=== PATIENT | female | born 1990 | race Caucasian/White ===

== ENCOUNTER 2018-03-29 15:12 | Outpatient (CLI) | payer MEDICAID | END 2018-03-29 22:47 | disposition home or self-care (01) | LOC: OBT 15:12 → L-D 15:14 → OBT 22:47 | DX: O36.5930 Maternal care for other known or suspected poor fetal growth, third trimester, not applicable or unspecified (principal); O24.419 Gestational diabetes mellitus in pregnancy, unspecified control; Z3A.37 37 weeks gestation of pregnancy | CPT/HCPCS: 76815; 76818; 82962 ==

== ENCOUNTER 2018-04-12 05:57 | Inpatient (IN) | payer MEDICAID ==
[2018-04-12] MEDS: LACTATED RINGER'S 1,000 ML IV ×2 (06:17→09:05)
[2018-04-12] MEDS ORDERED: CEFAZOLIN 2 GM/50 ML (PMX) 50 ML IV (06:30)
[2018-04-12] MEDS ORDERED: CARBOPROST 250 MCG INJ IM ×2 (06:30→09:30)
[2018-04-12] MEDS ORDERED: METHYLERGONOVINE 0.2 MG INJ IM ×2 (06:30→09:30)
[2018-04-12] MEDS ORDERED: MISOPROSTOL 200 MCG TAB PR ×2 (06:30→09:30)
[2018-04-12] MEDS ORDERED: OXYTOCIN 30 UNITS/LR 500 ML IV ×3 (06:30→09:30)
[2018-04-12 06:55] LABS: ADD MAN DIFF? NO
[2018-04-12] MEDS ORDERED: EPHEDrine SULFATE 50 MG/5 ML SYG (07:00)
[2018-04-12] MEDS ORDERED: OXYTOCIN 30 UNITS/LR 500 ML BAG IV (07:00)
[2018-04-12 07:13] LABS: BASOPHIL # 0.1 10^3/ul (0.0-0.1); BASOPHILS % 0.5 % (0.0-2.0); EOSINOPHILS # 0.1 10^3/ul (0.0-0.5); HEMATOCRIT 34.2 % (37.0-47.0); HEMOGLOBIN 11.8 g/dl (12.0-16.0); LYMPHOCYTES # 2.4 10^3/ul (0.8-2.9); LYMPHOCYTES % 22.9 % (15.0-51.0); MEAN CORPUSCULAR HEMOGLOBIN 31.2 pg (29.0-33.0); MEAN CORPUSCULAR HGB CONC 34.5 g/dl (32.0-37.0); MEAN CORPUSCULAR VOLUME 90.5 fl (82.0-101.0); MEAN PLATELET VOLUME 12.3 fl (7.4-10.4); MONOCYTE # 0.7 10^3/ul (0.3-0.9); MONOCYTES % 6.4 % (0.0-11.0); NEUTROPHIL # 7.2 10^3/ul (1.6-7.5); NEUTROPHILS % 68.4 % (39.0-77.0); PLATELET COUNT 169 10^3/UL (140-415); RED BLOOD COUNT 3.78 10^6/ul (4.20-5.40); RED CELL DISTRIBUTION WIDTH 12.9 % (11.5-14.5)
[2018-04-12 07:13] LABS: WHITE BLOOD COUNT 10.5 10^3/ul (4.8-10.8)
[2018-04-12 07:29] LABS: INR 0.95; PROTIME 12.8 Sec (11.9-14.9)
[2018-04-12 07:30] LABS: PARTIAL THROMBOPLASTIN TIME 29.1 Sec (25.0-35.0)
[2018-04-12 07:37] LABS: GLUCOSE 81 mg/dl (70-220)
[2018-04-12] MEDS ORDERED: morphine SULFATE/PF (10 MG/10 ML) INJ (07:38)
[2018-04-12] MEDS ORDERED: BUPIVACAINE 0.75%/DEXT (SPINAL) 2 ML INJ (07:38)
[2018-04-12] MEDS ORDERED: PHENYLephrine (100 MCG/ML) 5ML SYG (07:51)
[2018-04-12] MEDS ORDERED: ONDANSETRON 4 MG INJ (08:23)
[2018-04-12] MEDS ORDERED: FENTAnyl 50 MCG/ML VIAL (08:25)
[2018-04-12] MEDS ORDERED: DIPHENHYDRAMINE 50 MG INJ IV ×2 (08:30)
[2018-04-12] MEDS ORDERED: FENTAnyl 50 MCG/ML VIAL IV ×2 (08:30)
[2018-04-12] MEDS ORDERED: ONDANSETRON 4 MG INJ IV (08:30)
[2018-04-12] MEDS ORDERED: KETOROLAC 30 MG INJ IV (08:30)
[2018-04-12] MEDS ORDERED: METOCLOPRAMIDE 10 MG INJ IV (08:30)
[2018-04-12] MEDS ORDERED: NALOXONE (0.4 MG/ML) INJ IV (08:30)
[2018-04-12] MEDS ORDERED: HYDROmorphONE 1 MG/5 ML IV SYRINGE IV ×2 (08:30)
[2018-04-12] MEDS ORDERED: HYDROmorphONE 0.5 MG/0.5 ML SYG IV ×2 (08:30)
[2018-04-12] MEDS ORDERED: METHYLERGONOVINE 0.2 MG TAB PO (09:30)
[2018-04-12] MEDS: DEXTROSE 5%-LR 1,000 ML IV ×2 (11:58→17:04)
[2018-04-12] MEDS: OXYTOCIN 30 UNITS/LR 500 ML IV ×2 (11:59→17:39)
[2018-04-12] MEDS: KETOROLAC 30 MG INJ IV ×2 (12:18→18:45)
[2018-04-12 14:58] LABS: RAPID PLASMA REAGIN NONREACTIVE (NR)
[2018-04-12] MEDS: SENNA/DOCUSATE NA (8.6MG/50MG) TAB PO (20:49)
[2018-04-12] MEDS: LANOLIN 7 GM TUBE TOP (20:49)
[2018-04-13] MEDS: DEXTROSE 5%-LR 1,000 ML IV ×3 (01:04→17:04)
[2018-04-13] MEDS: KETOROLAC 30 MG INJ IV ×2 (01:11→07:58)
[2018-04-13 06:40] LABS: ADD MAN DIFF? NO
[2018-04-13 06:48] LABS: BASOPHILS % 0.2 % (0.0-2.0); EOSINOPHILS # 0.1 10^3/ul (0.0-0.5); HEMATOCRIT 32.4 % (37.0-47.0); HEMOGLOBIN 11.1 g/dl (12.0-16.0); LYMPHOCYTES # 1.6 10^3/ul (0.8-2.9); LYMPHOCYTES % 12.7 % (15.0-51.0); MEAN CORPUSCULAR HEMOGLOBIN 30.7 pg (29.0-33.0); MEAN CORPUSCULAR HGB CONC 34.3 g/dl (32.0-37.0); MEAN CORPUSCULAR VOLUME 89.5 fl (82.0-101.0); MEAN PLATELET VOLUME 12.1 fl (7.4-10.4); MONOCYTE # 0.7 10^3/ul (0.3-0.9); NEUTROPHIL # 9.9 10^3/ul (1.6-7.5); NEUTROPHILS % 79.7 % (39.0-77.0); PLATELET COUNT 152 10^3/UL (140-415); RED BLOOD COUNT 3.62 10^6/ul (4.20-5.40); RED CELL DISTRIBUTION WIDTH 12.9 % (11.5-14.5)
[2018-04-13 06:48] LABS: WHITE BLOOD COUNT 12.4 10^3/ul (4.8-10.8)
[2018-04-13] MEDS: HYDROCODONE/APAP (5/325) TAB PO ×5 (08:00→21:25)
[2018-04-13] MEDS: SENNA/DOCUSATE NA (8.6MG/50MG) TAB PO ×2 (09:15→21:24)
[2018-04-13] MEDS: IBUPROFEN 800 MG TAB PO ×2 (14:00→21:24)
[2018-04-14] MEDS: IBUPROFEN 800 MG TAB PO ×3 (05:38→21:21)
[2018-04-14] MEDS: HYDROCODONE/APAP (5/325) TAB PO ×4 (05:39→21:21)
[2018-04-14] MEDS: SENNA/DOCUSATE NA (8.6MG/50MG) TAB PO ×2 (09:29→21:21)
[2018-04-15] MEDS: HYDROCODONE/APAP (5/325) TAB PO ×3 (04:13→14:09)
[2018-04-15] MEDS: IBUPROFEN 800 MG TAB PO ×2 (06:08→14:10)
[2018-04-15] MEDS: SENNA/DOCUSATE NA (8.6MG/50MG) TAB PO (08:59)
[2018-04-15] MEDS ORDERED: MEASLES,MUMPS,RUBELLA VACCINE INJ SC* (09:00)
[2018-04-15] MEDS ORDERED: DIPHTH/TET/ACEL PERTUSS (ADULT) 0.5 ML VIAL IM* (09:00)
== END 2018-04-15 17:15 | disposition home or self-care (01) | DRG 766 ==
LOC: L-D 05:57 → PP1 11:10
PROVIDERS: Obstetrics & Gynecology
PROC: 10D00Z1 Extraction of Products of Conception, Low, Open Approach (ICD-10-PCS; principal; 2018-04-12 07:30)
PROC: 0DNU0ZZ Release Omentum, Open Approach (ICD-10-PCS; 2018-04-12 07:30)
PROC: 0UN60ZZ Release Left Fallopian Tube, Open Approach (ICD-10-PCS; 2018-04-12 07:30)
DX: O34.219 Maternal care for unspecified type scar from previous cesarean delivery (principal); Z3A.39 39 weeks gestation of pregnancy; Z37.0 Single live birth
CPT/HCPCS: 82947; 85025; 85610; 85730; 86592; 86850; 86900; 86901; 99464